=== PATIENT | male | born 1985 | race African-American/Black ===

== ENCOUNTER 2020-07-25 09:33 | Inpatient (IN) | payer MEDICAID ==
[~2020-07-25] VITALS: Ht 175.3 cm; Wt 92.5 kg
[2020-07-25] MEDS ORDERED: ONDANSETRON HCL 4MG/2ML INJ IV STA (09:58)
[2020-07-25] MEDS ORDERED: SODIUM CHLORIDE 0.9% 1,000 ML IV ONE ×2 (10:00→10:45)
[2020-07-25 10:20] LABS: HEMOGLOBIN. 16.8 g/dL (14.0-18.0); MEAN CORPUSCULAR VOLUME 87.3 fL (80.0-94.0); MEAN PLATELET VOLUME 9.8 fl (7.4-10.4); PLATELET 287 x1000/uL (130-400); RED BLOOD CELL COUNT 5.61 mill/uL (4.7-6.1); RED CELL DISTRIBUTION WIDTH 14.6 % (11.6-14.6)
[2020-07-25 10:28] LABS: CHLORIDE 94 mEq/L (98-107)
[2020-07-25] MEDS ORDERED: INSULIN REGULAR (HUMULIN R) 300UNITS/3ML VIAL SUBCUT NR (10:45)
[2020-07-25] MEDS ORDERED: LIDOCAINE HCL/PF 1% 2ML VIAL ONE (10:55)
[2020-07-25 11:09] LABS: BG BASE EXCESS -18.9 mmol/L (-2.0-2.0); BG CARBOXYHEMOGLOBIN 0.1 % (0.5-1.5); BG HCO3 ACT 6.9 mmol/L (22.0-26.0); BG METHEMOGLOBIN 0.3 % (0.0-1.5); BG OXYHEMOGLOBIN 97.6 % (94.0-97.0); BG PCO2 18.7 mmHg (35.0-45.0); BG PH 7.188 (7.350-7.450); BG PO2 129.7 mmHg (75.0-100.0); BG SAMPLE SITE RIGHT RADIAL; BG TOTAL HEMOGLOBIN 15.6 g/dL (12.0-18.0); BG VENT MODE ROOM AIR
[2020-07-25 11:17] LABS: PLATELET ESTIMATE NORMAL
[2020-07-25] MEDS ORDERED: SODIUM CHLORIDE 0.9% 1000ML BAG (SEPSIS BOLUS) IV SCH (11:30)
[2020-07-25] MEDS ORDERED: PIPERACILLIN/TAZ 3.375G PREMIX 50 ML IV SCH (11:30)
[2020-07-25] MEDS ORDERED: INSULIN REGULAR (DRIP) 100 UNITS in SODIUM CHLORIDE 0.9% 100 ML IV ONE (11:30)
[2020-07-25 11:48] LABS: PHOSPHORUS 4.4 mg/dL (2.5-4.9)
[2020-07-25 11:48] LABS: CLARITY URINE CLEAR (CLEAR); COLOR URINE YELLOW (YELLOW); KETONES URINE 4+ (NEGATIVE); LEUKOCYTE ESTERASE URINE NEGATIVE (NEGATIVE); NITRITE URINE NEGATIVE (NEGATIVE); OCCULT BLOOD URINE 2+ (NEGATIVE); PROTEIN URINE 2+ (NEGATIVE); SPECIFIC GRAVITY URINE 1.036 (1.005-1.030); UROBILINOGEN URINE 0.2 E.U./dL (0.2-1.0)
[2020-07-25 12:05] LABS: *AMPHETAMINES SCREEN URINE NEGATIVE (NEGATIVE); *BARBITURATES SCREEN URINE NEGATIVE (NEGATIVE)
[2020-07-25 12:06] LABS: *BENZODIAZEPINES SCREEN URINE NEGATIVE (NEGATIVE); *COCAINE SCREEN URINE NEGATIVE (NEGATIVE); CANNABINOID URINE SCREEN PRESUMTIVE POSITIVE (NEGATIVE); METHADONE URINE SCREEN NEGATIVE (NEGATIVE); OPIATES URINE SCREEN NEGATIVE (NEGATIVE); PHENCYCLIDINE URINE SCREEN NEGATIVE (NEGATIVE)
[2020-07-25 12:46] LABS: CHLORIDE 100 mEq/L (98-107)
[2020-07-25] MEDS ORDERED: GUAIFENESIN 200MG/10ML SUGAR FREE UDC PO PRN (14:15)
[2020-07-25] MEDS ORDERED: NA PHOS,M-B/NA PHOS,DI-BA ENEMA 118ML PR PRN (14:15)
[2020-07-25] MEDS ORDERED: CLONIDINE 0.1MG TABLET PO PRN (14:15)
[2020-07-25] MEDS ORDERED: MORPHINE SULFATE 2 MG/ML CPJ (NOT FOR IM USE) IV PRN (14:15)
[2020-07-25] MEDS ORDERED: LORAZEPAM 2MG/ML CPJ IV PRN (14:15)
[2020-07-25] MEDS ORDERED: ACETAMINOPHEN 325MG TABLET PO PRN (14:15)
[2020-07-25] MEDS ORDERED: HYDROCODONE/ACETAMINOPHEN 5/325MG TABLET PO PRN (14:15)
[2020-07-25] MEDS ORDERED: MAGNESIUM/ALUMINUM HYDROXIDE/SIMETHICONE 30ML UDC PO PRN (14:15)
[2020-07-25] MEDS ORDERED: ONDANSETRON HCL 4MG/2ML INJ IV PRN (14:15)
[2020-07-25] MEDS ORDERED: DIPHENHYDRAMINE 50MG/ML VIAL IV PRN (14:15)
[2020-07-25] MEDS ORDERED: DOCUSATE SODIUM 100MG CAPSULE PO PRN (14:15)
[2020-07-25] MEDS ORDERED: IPRATROPIUM/ALBUTEROL 0.5-3(2.5)MG/3ML NEB NEB PRN (14:15)
[2020-07-25 14:29] LABS: CHLORIDE 100 mEq/L (98-107)
[2020-07-25 15:30] LABS: CHLORIDE 105 mEq/L (98-107)
[2020-07-25] MEDS: SODIUM CHLORIDE 0.45% 1,000 ML IV SCH (17:40)
[2020-07-25] MEDS ORDERED: LEVOFLOXACIN 500MG PREMIX 100 ML IV SCH (18:00)
[2020-07-25 18:30] VITALS: BP 125/77
[2020-07-25 20:13] VITALS: BP 129/72
[2020-07-25] MEDS ORDERED: DEXTROSE 50% WATER 50ML SYRINGE IV PRN (20:15)
[2020-07-25] MEDS: BLOOD SUGAR DIAGNOSTIC STRIP TEST SCH (20:38)
[2020-07-25] MEDS: LEVOFLOXACIN 500MG PREMIX 100 ML IV SCH (21:25)
[2020-07-25] MEDS: INSULIN LISPRO 100 UNITS/ML SUBCUT SCH (21:26)
[2020-07-25 21:54] LABS: CHLORIDE 104 mEq/L (98-107)
[2020-07-25] MEDS ORDERED: METRONIDAZOLE 500 MG PREMIX 100 ML IV SCH (22:00)
[2020-07-25] MEDS: METRONIDAZOLE 500 MG PREMIX 100 ML IV SCH (22:39)
[2020-07-26] VITALS: BP 113/62
[2020-07-26 04:00] VITALS: BP 108/66
[2020-07-26] MEDS: SODIUM CHLORIDE 0.45% 1,000 ML IV SCH ×2 (04:16→17:20)
[2020-07-26] MEDS: METRONIDAZOLE 500 MG PREMIX 100 ML IV SCH ×3 (05:54→22:31)
[2020-07-26 05:59] LABS: BASOPHILS % 0.3 % (0.0-2.0); EOSINOPHILS % 0.2 % (0.0-5.0); HEMATOCRIT. 38.7 % (42.0-52.0); HEMOGLOBIN. 13.6 g/dL (14.0-18.0); LYMPHOCYTES % 11.3 % (20.0-50.0); MEAN CORPUSCULAR HEMOGLOBIN 29.7 pg (28.0-32.0); MEAN CORPUSCULAR VOLUME 84.7 fL (80.0-94.0); MEAN PLATELET VOLUME 9.8 fl (7.4-10.4); MONOCYTES % 9.4 % (2.0-8.0); NEUTROPHILS % 78.8 % (40.0-76.0); PLATELET 198 x1000/uL (130-400); RED BLOOD CELL COUNT 4.57 mill/uL (4.7-6.1); RED CELL DISTRIBUTION WIDTH 14.5 % (11.6-14.6)
[2020-07-26 06:05] LABS: CHLORIDE 101 mEq/L (98-107)
[2020-07-26 06:24] LABS: LDL CHOLESTEROL 87 mg/dL (5-100)
[2020-07-26 06:27] LABS: T4 FREE 0.94 ng/dL (0.76-1.46)
[2020-07-26 06:28] LABS: HDL CHOLESTEROL 56 mg/dL (40-59)
[2020-07-26] MEDS: BLOOD SUGAR DIAGNOSTIC STRIP TEST SCH ×4 (06:36→20:55)
[2020-07-26 07:45] VITALS: BP 107/47
[2020-07-26] MEDS: INSULIN LISPRO 100 UNITS/ML SUBCUT SCH ×4 (08:02→21:20)
[2020-07-26 11:02] LABS: BG BASE EXCESS -9.7 mmol/L (-2.0-2.0); BG CARBOXYHEMOGLOBIN 0.3 % (0.5-1.5); BG HCO3 ACT 13.5 mmol/L (22.0-26.0); BG METHEMOGLOBIN 0.2 % (0.0-1.5); BG OXYHEMOGLOBIN 97.5 % (94.0-97.0); BG PCO2 23.7 mmHg (35.0-45.0); BG PH 7.373 (7.350-7.450); BG PO2 119.5 mmHg (75.0-100.0); BG SAMPLE SITE RIGHT RADIAL; BG TOTAL HEMOGLOBIN 13.9 g/dL (12.0-18.0); BG VENT MODE ROOM AIR
[2020-07-26] MEDS ORDERED: POTASSIUM CHLORIDE INJ 40 MEQ in DEXT 5% WATER 250 ML IV SCH (11:30)
[2020-07-26 11:54] VITALS: BP 108/66
[2020-07-26] MEDS: INSULIN GLARGINE UD 100 UNITS/ML SYR SUBCUT SCH (13:28)
[2020-07-26 16:18] VITALS: BP 115/70
[2020-07-26 16:26] LABS: CHLORIDE 99 mEq/L (98-107)
[2020-07-26] MEDS: BACITRACIN 15GM TUBE TOP SCH ×2 (17:19→21:19)
[2020-07-26 20:30] VITALS: BP 130/74
[2020-07-26] MEDS: LEVOFLOXACIN 500MG PREMIX 100 ML IV SCH (21:19)
[2020-07-27] VITALS: BP 125/63
[2020-07-27 04:00] VITALS: BP 142/79
[2020-07-27 04:30] VITALS: BP 142/79
[2020-07-27] MEDS: SODIUM CHLORIDE 0.45% 1,000 ML IV SCH (05:57)
[2020-07-27] MEDS: METRONIDAZOLE 500 MG PREMIX 100 ML IV SCH ×2 (05:57→13:24)
[2020-07-27] MEDS: BLOOD SUGAR DIAGNOSTIC STRIP TEST SCH ×2 (06:25→12:52)
[2020-07-27 08:06] VITALS: BP 133/87
[2020-07-27] MEDS: INSULIN LISPRO 100 UNITS/ML SUBCUT SCH ×2 (08:11→13:28)
[2020-07-27] MEDS: BACITRACIN 15GM TUBE TOP SCH (08:12)
[2020-07-27 09:29] LABS: BASOPHILS % 0.2 % (0.0-2.0); EOSINOPHILS % 0.3 % (0.0-5.0); HEMATOCRIT. 40.6 % (42.0-52.0); HEMOGLOBIN. 14.2 g/dL (14.0-18.0); LYMPHOCYTES % 16.8 % (20.0-50.0); MEAN CORPUSCULAR HEMOGLOBIN 29.3 pg (28.0-32.0); MEAN CORPUSCULAR VOLUME 83.9 fL (80.0-94.0); MEAN PLATELET VOLUME 9.2 fl (7.4-10.4); NEUTROPHILS % 69.7 % (40.0-76.0); PLATELET 212 x1000/uL (130-400); RED BLOOD CELL COUNT 4.84 mill/uL (4.7-6.1); RED CELL DISTRIBUTION WIDTH 14.4 % (11.6-14.6)
[2020-07-27 09:37] LABS: CHLORIDE 97 mEq/L (98-107)
[2020-07-27] MEDS: INSULIN GLARGINE UD 100 UNITS/ML SYR SUBCUT SCH (10:36)
[2020-07-27] MEDS ORDERED: POTASSIUM CHLORIDE 20MEQ TABLET SR PO SCH (11:00)
[2020-07-27] MEDS ORDERED: POTASSIUM CHLORIDE INJ 40 MEQ in DEXT 5% WATER 250 ML IV SCH (12:00)
[2020-07-27 12:07] VITALS: BP 118/75
[2020-07-27] MEDS ORDERED: POTASSIUM CHLORIDE 20MEQ TABLET SR PO NR (15:00)
[2020-07-27 16:36] VITALS: BP 135/87
== END 2020-07-27 17:50 | disposition home or self-care (01) | DRG 720 ==
LOC: ER 09:33 → 6WST 11:30 → ENRESERV 16:38 → CANRESERV 16:38 → EDBEDREQSVC 16:46 → ENRESERV 17:31
PROVIDERS: ADMIT Internal Medicine; ATTEND Internal Medicine
DX: A41.9 Sepsis, unspecified organism (principal); E86.0 Dehydration; I10 Essential (primary) hypertension; G93.41 Metabolic encephalopathy; F17.200 Nicotine dependence, unspecified, uncomplicated; E11.10 Type 2 diabetes mellitus with ketoacidosis without coma; L73.9 Follicular disorder, unspecified; Z83.3 Family history of diabetes mellitus; E87.8 Other disorders of electrolyte and fluid balance, not elsewhere classified; S31.104A Unspecified open wound of abdominal wall, left lower quadrant without penetration into peritoneal cavity, initial encounter
CPT/HCPCS: 36415; 36600; 71045; 80048; 80053; 80061; 80305; 81003; 82010; 82375; 82805; 82962; 83605; 83735; 84100; 84145; 84439; 84443; 84484; 85025; 87070; 87077; 93005; 99291; J1815; J1956; J2405; J2543; J3480; J3490; J7030; J7050; J7060

== ENCOUNTER 2020-12-21 22:54 | Emergency (ER) | payer MEDICAID ==
[~2020-12-21] VITALS: Ht 175.3 cm; Wt 93.0 kg
[2020-12-22] MEDS ORDERED: INSULIN REGULAR (HUMULIN R) 300UNITS/3ML VIAL SUBCUT ONE (02:00)
[2020-12-22] MEDS ORDERED: SODIUM CHLORIDE 0.9% 1,000 ML IV ONE (02:00)
[2020-12-22 02:23] LABS: BASOPHILS % 0.8 % (0.0-2.0); EOSINOPHILS % 0.9 % (0.0-5.0); HEMATOCRIT. 41.3 % (42.0-52.0); HEMOGLOBIN. 14.6 g/dL (14.0-18.0); LYMPHOCYTES % 20.8 % (20.0-50.0); MEAN CORPUSCULAR HEMOGLOBIN 30.2 pg (28.0-32.0); MEAN CORPUSCULAR VOLUME 85.7 fL (80.0-94.0); MEAN PLATELET VOLUME 8.9 fl (7.4-10.4); MONOCYTES % 8.6 % (2.0-8.0); NEUTROPHILS % 68.9 % (40.0-76.0); PLATELET 213 x1000/uL (130-400); RED BLOOD CELL COUNT 4.82 mill/uL (4.7-6.1); RED CELL DISTRIBUTION WIDTH 12.7 % (11.6-14.6)
[2020-12-22 02:26] LABS: CHLORIDE 92 mEq/L (98-107)
[2020-12-22] MEDS ORDERED: INSU100I28 SQ (02:56)
[2020-12-22 04:02] VITALS: BP 116/73
== END 2020-12-22 04:04 | disposition home or self-care (01) ==
LOC: ER 22:54
DX: E10.65 Type 1 diabetes mellitus with hyperglycemia (principal); F12.10 Cannabis abuse, uncomplicated; F17.210 Nicotine dependence, cigarettes, uncomplicated; Z91.14 Patient's other noncompliance with medication regimen; Z76.0 Encounter for issue of repeat prescription; Z71.6 Tobacco abuse counseling; Z79.4 Long term (current) use of insulin
CPT/HCPCS: 36415; 80048; 82010; 82962; 85025; 96360; 96361; 96372; 99283; 99406; J1815; J7030

== ENCOUNTER 2020-12-29 04:42 | Emergency (ER) | payer MEDICAID ==
[~2020-12-29] VITALS: Ht 175.3 cm; Wt 93.0 kg
[~2020-12-29 04:42] MED LIST: INSU100I28 SQ
[2020-12-29 05:55] LABS: EOSINOPHILS % 1.3 % (0.0-5.0); HEMATOCRIT. 43.7 % (42.0-52.0); HEMOGLOBIN. 15.5 g/dL (14.0-18.0); LYMPHOCYTES % 29.4 % (20.0-50.0); MEAN CORPUSCULAR VOLUME 84.4 fL (80.0-94.0); MEAN PLATELET VOLUME 8.4 fl (7.4-10.4); MONOCYTES % 10.1 % (2.0-8.0); NEUTROPHILS % 58.2 % (40.0-76.0); PLATELET 302 x1000/uL (130-400); RED BLOOD CELL COUNT 5.18 mill/uL (4.7-6.1); RED CELL DISTRIBUTION WIDTH 12.9 % (11.6-14.6)
[2020-12-29 05:56] LABS: CHLORIDE 92 mEq/L (98-107)
[2020-12-29 06:04] LABS: BETA HYDROXYBUTYRATE 3.2 mMol/L (0.0-0.3)
[2020-12-29] MEDS ORDERED: SODIUM CHLORIDE 0.9% 1,000 ML IV ONE (06:15)
[2020-12-29] MEDS ORDERED: INSULIN REGULAR (HUMULIN R) 300UNITS/3ML VIAL SUBCUT ONE (06:30)
[2020-12-29] MEDS ORDERED: INSU100I24 SQ (06:30)
[2020-12-29 09:04] VITALS: BP 118/71
== END 2020-12-29 09:06 | disposition home or self-care (01) ==
LOC: ER 04:42
DX: E11.65 Type 2 diabetes mellitus with hyperglycemia (principal); Z91.14 Patient's other noncompliance with medication regimen; Z79.4 Long term (current) use of insulin
CPT/HCPCS: 36415; 80053; 82010; 82962; 85025; 96360; 96372; 99283; J1815

== ENCOUNTER 2021-09-12 01:02 | Inpatient (IN) | payer MEDICAID ==
[~2021-09-12] VITALS: Ht 175.3 cm; Wt 89.4 kg
[~2021-09-12 01:02] MED LIST changes: +INSU100I24 SQ
[2021-09-12] MEDS ORDERED: ONDANSETRON HCL 4MG/2ML INJ IV ONE ×2 (01:45→03:15)
[2021-09-12] MEDS ORDERED: SODIUM CHLORIDE 0.9% 1,000 ML IV ONE (02:00)
[2021-09-12] MEDS ORDERED: KETOROLAC 15MG/ML VIAL IV ONE (02:00)
[2021-09-12] MEDS ORDERED: DIPHENHYDRAMINE 50MG/ML VIAL IV ONE (02:15)
[2021-09-12] MEDS ORDERED: METOCLOPRAMIDE HCL 10MG/2ML VIAL IV ONE (02:15)
[2021-09-12 02:22] LABS: BASOPHILS % 0.2 % (0.0-2.0); EOSINOPHILS % 1.6 % (0.0-5.0); HEMATOCRIT. 41.8 % (42.0-52.0); HEMOGLOBIN. 14.3 g/dL (14.0-18.0); LYMPHOCYTES % 29.3 % (20.0-50.0); MEAN CORPUSCULAR HEMOGLOBIN 29.3 pg (28.0-32.0); MEAN CORPUSCULAR VOLUME 85.6 fL (80.0-94.0); MEAN PLATELET VOLUME 8.6 fl (7.4-10.4); MONOCYTES % 7.3 % (2.0-8.0); NEUTROPHILS % 61.6 % (40.0-76.0); PLATELET 263 x1000/uL (130-400); RED BLOOD CELL COUNT 4.89 mill/uL (4.7-6.1); RED CELL DISTRIBUTION WIDTH 13.7 % (11.6-14.6)
[2021-09-12 02:25] LABS: CHLORIDE 103 mEq/L (98-107)
[2021-09-12 02:32] LABS: ETHANOL BLOOD < 10 mg/dL
[2021-09-12] MEDS ORDERED: DEXTROSE 50% WATER 50ML SYRINGE IV ONE (02:45)
[2021-09-12] MEDS ORDERED: MORPHINE SULFATE 2 MG/ML CPJ (NOT FOR IM USE) IV ONE (03:15)
[2021-09-12 03:44] LABS: CLARITY URINE CLEAR (CLEAR); COLOR URINE YELLOW (YELLOW); KETONES URINE TRACE (NEGATIVE); LEUKOCYTE ESTERASE URINE 1+ (NEGATIVE); NITRITE URINE NEGATIVE (NEGATIVE); OCCULT BLOOD URINE NEGATIVE (NEGATIVE); PH URINE 6.5 (4.5-8.0); PROTEIN URINE NEGATIVE (NEGATIVE); SPECIFIC GRAVITY URINE 1.029 (1.005-1.030)
[2021-09-12] MEDS ORDERED: POTASSIUM CHLORIDE INJ 40 MEQ in DEXT 5% WATER 500 ML IV ONE (03:45)
[2021-09-12 04:01] LABS: *AMPHETAMINES SCREEN URINE NEGATIVE (NEGATIVE); *BARBITURATES SCREEN URINE NEGATIVE (NEGATIVE); *BENZODIAZEPINES SCREEN URINE NEGATIVE (NEGATIVE); *COCAINE SCREEN URINE NEGATIVE (NEGATIVE); CANNABINOID URINE SCREEN PRESUMTIVE POSITIVE (NEGATIVE); METHADONE URINE SCREEN NEGATIVE (NEGATIVE); OPIATES URINE SCREEN NEGATIVE (NEGATIVE); PHENCYCLIDINE URINE SCREEN NEGATIVE (NEGATIVE)
[2021-09-12] MEDS: KCL 20MEQ/100ML PREMIX 100 ML IV SCH ×3 (04:02→06:51)
[2021-09-12] MEDS ORDERED: METF-414 PO (09:58)
[2021-09-12] MEDS ORDERED: ACETAMINOPHEN 650MG/20.3ML UDC PO PRN (10:30)
[2021-09-12] MEDS ORDERED: DEXTROSE 50% WATER 50ML SYRINGE IV PRN (10:30)
[2021-09-12 11:00] VITALS: BP 126/81
[2021-09-12 12:00] VITALS: BP 145/83
[2021-09-12] MEDS: BLOOD SUGAR DIAGNOSTIC STRIP TEST SCH ×2 (12:02→16:04)
[2021-09-12] MEDS ORDERED: SUMATRIPTAN SUCCINATE 6MG/0.5ML VIAL SUBCUT NR (13:00)
[2021-09-12] MEDS: INSULIN LISPRO 100 UNITS/ML SUBCUT SCH ×2 (13:04→16:05)
[2021-09-12] MEDS ORDERED: CEFTRIAXONE 1 G PREMIX 50 ML IV SCH (13:15)
[2021-09-12 14:41] VITALS: BP 145/83
[2021-09-12] MEDS ORDERED: CEFTRIAXONE 1,000 MG in DEXTROSE 5% WATER 50 ML IV SCH (15:00)
[2021-09-12] MEDS ORDERED: INSULIN GLARGINE 100 UNITS/ML SUBCUT SCH (22:00)
== END 2021-09-12 17:00 | disposition home or self-care (01) | DRG 420 ==
LOC: ER 01:02 → 8WST 04:50 → ENRESERV 07:29
PROVIDERS: ADMIT Internal Medicine; ATTEND Internal Medicine
DX: E11.649 Type 2 diabetes mellitus with hypoglycemia without coma (principal); E87.6 Hypokalemia; R51.9 Headache, unspecified; N39.0 Urinary tract infection, site not specified; F12.90 Cannabis use, unspecified, uncomplicated; I10 Essential (primary) hypertension; R74.01 Elevation of levels of liver transaminase levels; Z79.4 Long term (current) use of insulin; Z79.899 Other long term (current) drug therapy; Z82.49 Family history of ischemic heart disease and other diseases of the circulatory system
CPT/HCPCS: 36415; 80053; 80305; 80320; 81003; 82962; 83036; 84132; 85025; 93005; 99285; J0696; J1815; J1885; J2270; J2405; J2765; J3030; J3480; J7030; J7060; G0480

== ENCOUNTER 2024-01-24 21:59 | Emergency (ER) | payer MEDICAID ==
[~2024-01-24] VITALS: Ht 172.7 cm; Wt 113.0 kg
[~2024-01-24 21:59] MED LIST changes: +METF-414 PO
[2024-01-24 22:19] VITALS: TEMP 98.5; O2SAT 98
[2024-01-24] MEDS: ONDANSETRON HCL 4MG/2ML INJ IV STA (22:33)
[2024-01-24] MEDS: KETOROLAC 30MG/ML VIAL IV ONE (23:15)
[2024-01-24] MEDS: DIPHENHYDRAMINE 50MG/ML VIAL IV ONE (23:15)
[2024-01-24] MEDS: SODIUM CHLORIDE 0.9% 1,000 ML IV ONE (23:34)
[2024-01-25 00:52] VITALS: BP 102/54; PULSE 56; RESP 14; O2SAT 100
== END 2024-01-25 01:05 | disposition left against medical advice (07) ==
LOC: ER 21:59
DX: G43.909 Migraine, unspecified, not intractable, without status migrainosus (principal); E11.9 Type 2 diabetes mellitus without complications; I10 Essential (primary) hypertension; Z86.59 Personal history of other mental and behavioral disorders; Z79.4 Long term (current) use of insulin
CPT/HCPCS: 99284; 96374; 96375; 71045; 96361; 93005; J1200; J1885; J2405; J7030

== ENCOUNTER 2024-04-11 04:29 | Emergency (ER) | payer MEDICAID ==
[~2024-04-11] VITALS: Ht 170.2 cm; Wt 102.0 kg
[2024-04-11 04:37] VITALS: BP 113/84; TEMP 98.3; O2SAT 99
[2024-04-11 04:47] VITALS: PULSE 68; RESP 16; O2SAT 100
[2024-04-11] MEDS ORDERED: INSU100I26 SQ (04:49)
[2024-04-11] MEDS ORDERED: INSU100I28 SQ (04:49)
== END 2024-04-11 04:59 | disposition home or self-care (01) ==
LOC: ER 04:50
DX: Z76.0 Encounter for issue of repeat prescription (principal); E11.9 Type 2 diabetes mellitus without complications; Z79.899 Other long term (current) drug therapy
CPT/HCPCS: 82962; 99282

== ENCOUNTER 2024-08-12 22:13 | Emergency (ER) | payer MEDICAID ==
[~2024-08-12] VITALS: Ht 175.3 cm; Wt 100.0 kg
[~2024-08-12 22:13] MED LIST changes: +INSU100I26 SQ
[2024-08-12 22:39] VITALS: TEMP 36.8; O2SAT 99
[2024-08-12 23:31] LABS: BASOPHILS % 0.9 % (0.0-2.0); EOSINOPHILS % 1.9 % (0.0-5.0); HEMATOCRIT. 42.6 % (42.0-52.0); HEMOGLOBIN. 14.7 g/dL (14.0-18.0); LYMPHOCYTES % 46.9 % (20.0-50.0); MEAN CORPUSCULAR HEMOGLOBIN 29.9 pg (28.0-32.0); MEAN CORPUSCULAR HGB CONC 34.4 g/dL (31.0-37.0); MEAN CORPUSCULAR VOLUME 86.9 fL (80.0-94.0); MEAN PLATELET VOLUME 8.5 fl (7.4-10.4); MONOCYTES % 8.2 % (2.0-8.0); NEUTROPHILS % 42.1 % (40.0-76.0); PLATELET 210 x1000/uL (130-400); RED CELL DISTRIBUTION WIDTH 13.2 % (11.6-14.6); WHITE BLOOD COUNT 5.7 x1000/uL (4.5-11.0)
[2024-08-12 23:43] LABS: CHLORIDE 103 mEq/L (98-107); POTASSIUM 3.7 mEq/L (3.5-5.1); SODIUM 140 mEq/L (136-145)
[2024-08-12 23:44] LABS: CARBON DIOXIDE 29 mEq/L (21-32)
[2024-08-12 23:45] LABS: CALCIUM 10.3 mg/dL (8.7-10.4)
[2024-08-12 23:49] LABS: GLUCOSE 118 mg/dL (70-105)
[2024-08-12 23:50] LABS: UREA NITROGEN BLOOD 9 mg/dL (9-23)
[2024-08-13 00:15] LABS: TROPONIN I HIGH SENSITIVITY < 4 ng/L (3.0-53)
[2024-08-13] MEDS: TRAMADOL 50MG TABLET PO ONE (01:42)
[2024-08-13] MEDS ORDERED: CYCL5TAB3 MT (01:54)
[2024-08-13] MEDS ORDERED: NAPR-681 MT (01:54)
[2024-08-13 02:13] VITALS: BP 125/89; PULSE 64; RESP 17; O2SAT 100
== END 2024-08-13 02:17 | disposition home or self-care (01) ==
LOC: ER 22:13
DX: M25.512 Pain in left shoulder (principal); E11.9 Type 2 diabetes mellitus without complications; Z79.4 Long term (current) use of insulin; Z79.1 Long term (current) use of non-steroidal anti-inflammatories (NSAID); Z79.899 Other long term (current) drug therapy
CPT/HCPCS: 36415; 71046; 73030; 80048; 84484; 85025; 93005; 99284; 99285

== ENCOUNTER 2024-12-17 22:00 | Emergency (ER) | payer MEDICAID, OTHER ==
[~2024-12-17] VITALS: Ht 175.3 cm; Wt 95.0 kg
[~2024-12-17 22:00] MED LIST changes: +CYCL5TAB3 MT; +NAPR-681 MT
[2024-12-17 22:12] VITALS: O2SAT 100
[2024-12-17] MEDS ORDERED: CYCL5TAB3 MT (23:27)
[2024-12-17] MEDS ORDERED: LIDO700A30 TP (23:27)
[2024-12-17] MEDS: KETOROLAC 15MG/ML VIAL IM ONE (23:40)
[2024-12-17] MEDS: ACETAMINOPHEN 325MG TABLET PO ONE (23:41)
[2024-12-17] MEDS: LIDOCAINE 5% PATCH TOP SCH (23:41)
[2024-12-18 00:53] VITALS: BP 108/68; PULSE 65; RESP 18; TEMP 36.4; O2SAT 97
== END 2024-12-18 01:05 | disposition home or self-care (01) ==
LOC: ER 22:00
DX: M25.512 Pain in left shoulder (principal); E11.9 Type 2 diabetes mellitus without complications; F10.90 Alcohol use, unspecified, uncomplicated; Z79.1 Long term (current) use of non-steroidal anti-inflammatories (NSAID); Z79.4 Long term (current) use of insulin; V89.2XXA Person injured in unspecified motor-vehicle accident, traffic, initial encounter; Y93.89 Activity, other specified; Y92.89 Other specified places as the place of occurrence of the external cause; Y99.8 Other external cause status
CPT/HCPCS: 99283; 73030; J1885